=== PATIENT | male | born 1985 | race Caucasian/White ===

== ENCOUNTER 2016-10-28 12:51 | Emergency (ER) | payer OTHER ==
[~2016-10-28 12:51] MED LIST: IBUPROFEN800 MG PO; KEFLEX500 M1 PO; NO MEDICATIONS; TYLENOL #3 PO
== END 2016-10-28 14:13 | disposition home or self-care (01) ==
LOC: CFTX 12:51
DX: S61.511A Laceration without foreign body of right wrist, initial encounter (principal); F17.210 Nicotine dependence, cigarettes, uncomplicated; W45.8XXA Other foreign body or object entering through skin, initial encounter; Y99.0 Civilian activity done for income or pay
CPT/HCPCS: 12002; 99283

== ENCOUNTER → 2016-11-06 23:25 | Emergency (ER) | payer OTHER | END | disposition home or self-care (01) | LOC: CFTX 23:25 | DX: S61.511D Laceration without foreign body of right wrist, subsequent encounter (principal) | CPT/HCPCS: 99281 ==